=== PATIENT | male | born 1995 | race Two or more races ===

== ENCOUNTER → 2016-09-11 21:47 | Emergency (ER) | payer OTHER ==
[2016-09-11 21:56] VITALS: BP 159/89
--- NOTE | 2016-09-11 22:48 | ED ---
Akira Moody Billy, scribed for Peng Fernandes MD on 09/11/16 at 2245 . Abdominal Pain/Male - HPI Summary HPI Summary: Patient is a 21 year-old male coming to [facility] for evaluation of an episode of RLQ pain starting approximately 40 minutes ago while he was at rest. He states that the pain lasted approximately 30 minutes before spontaneously improving. Pain severity 1/10 at this time. He had an episode of nausea and vomiting as well. He denies any significant changes in diet recently. - History of Current Complaint Chief Complaint: EDAbdPain Stated Complaint: ABD PAIN/VOMITING Time Seen by Provider: 09/11/16 22:43 Hx Obtained From: Patient Onset/Duration: Gradual Onset, Lasting Minutes Timing: Constant Severity Initially: Moderate Severity Currently: Moderate Pain Intensity: 1 Pain Scale Used: 0-10 Numeric Location: Discrete At: RLQ Radiates: No Aggravating Factor(s): Nothing Alleviating Factor(s): Spontaneous Resolution Associated Signs And Symptoms: Positive: Nausea, Vomiting - Allergies/Home Medications Allergies/Adverse Reactions: Allergies Allergy/AdvReac Type Severity Reaction Status Date / Time No Known Allergies Allergy Verified 09/11/16 23:08 Home Medications: Home Medications NK [No Home Medications Reported] 09/11/16 [History Confirmed 09/11/16] PMH/Surg Hx/FS Hx/Imm Hx Respiratory History: Reports: Hx Asthma Sensory History: Reports: Hx Contacts or Glasses Opthamlomology History: Reports: Hx Contacts or Glasses Psychiatric History: Reports: Hx Depression, Hx Community Mental Health Tx, Hx Suicide Attempt, Other Psychiatric Issues/Disorders Denies: Hx Eating Disorder, Hx of Violent Episodes Against Others Infectious Disease History: No Infectious Disease History: Denies: Traveled Outside the [place] in Last 30 Days - Family History Known Family History: Negative: Cardiac Disease, Hypertension, Diabetes - Social History Alcohol Use: None Substance Use Type: Reports: None Have You Smoked in the Last Year: No Review of Systems Negative: Fever Positive: Abdominal Pain, Vomiting, Nausea All Other Systems Reviewed And Are Negative: Yes Physical Exam Triage Information Reviewed: Yes Vital Signs On Initial Exam: Initial Vitals Temp Pulse Resp BP Pulse Ox 97.9 F 75 16 159/89 97 09/11/16 21:53 09/11/16 21:53 09/11/16 21:53 09/11/16 21:53 09/11/16 21:53 Vital Signs Reviewed: Yes Appearance: Positive: Well-Appearing, No Pain Distress Skin: Positive: Warm Head/Face: Positive: Normal Head/Face Inspection Eyes: Positive: RUBY ENT: Positive: Hearing grossly normal Neck: Positive: Supple Respiratory/Lung Sounds: Positive: Breath Sounds Present Cardiovascular: Positive: RRR Abdomen Description: Positive: Nontender, No Organomegaly, Soft Bowel Sounds: Positive: Present Musculoskeletal: Positive: Strength/ROM Intact Neurological: Positive: Sensory/Motor Intact, Alert, Oriented to Person Place, Time, Normal Gait Psychiatric: Positive: Affect/Mood Appropriate Diagnostics - Vital Signs Vital Signs Temp Pulse Resp BP Pulse Ox 09/11/16 21:53 97.9 F 75 16 159/89 97 - Laboratory Lab Statement: Any lab studies that have been ordered have been reviewed, and results considered in the medical decision making process. Re-Evaluation - Re-Evaluation First Eval Change: Improved Abdominal Pain Fem Course/Dx - Diagnoses Provider Diagnoses: Abdominal pain Discharge - Discharge Plan Condition: Stable Disposition: HOME Patient Education Materials: Abdominal Pain (ED) Referrals: [facility] [Outside] The documentation as recorded by the Akira abreu Billy accurately reflects the service I personally performed and the decisions made by , Peng Fernandes MD.
== END | disposition home or self-care (01) ==
LOC: ED 21:47
DX: R10.31 Right lower quadrant pain (principal); R11.2 Nausea with vomiting, unspecified
CPT/HCPCS: 99282